=== PATIENT | male | born 1960 | race Caucasian/White ===

== ENCOUNTER 2022-05-15 11:56 | Outpatient (REF) | payer MEDICARE, SELFPAY ==
[2022-05-15 13:57] LABS: Appearance Urine Clear; Color Urine Yellow; Glucose Urine UA Negative (Negative); Leukocyte Esterase Urine Negative (Negative); Nitrite Urine Negative (Negative); Urine Blood Negative (Negative); Urine Ketones Negative (Negative); Urine Protein Negative (Neg-Trace)
[2022-05-15 13:59] LABS: Bacteria Urine None Seen (None Seen); Hyaline Casts Urine 0-2 /LPF (0-2); RBC Urine 0-2 /HPF (0-2); Squamous Epithelial Cell Urine 0-2 /HPF (0-2); WBC Urine 0-5 /HPF (0-5)
== END 2022-05-15 11:57 | disposition home or self-care (01) ==
LOC: HO.10HDL 11:56
PROVIDERS: Visit Provider Internal Medicine Hypertension Specialist
DX: N17.9 Acute kidney failure, unspecified (principal); E11.22 Type 2 diabetes mellitus with diabetic chronic kidney disease; N18.9 Chronic kidney disease, unspecified
CPT/HCPCS: 81001

== ENCOUNTER 2022-06-15 12:43 | Outpatient (REF) | payer MEDICARE, SELFPAY ==
--- NOTE | ~2022-06-15 | US_ITS ---
EXAMINATION: US RETROPERITONEAL LIMITED (RENAL ONLY) CLINICAL INFORMATION: Type 2 diabetes. Acute kidney injury. CKD. Hyperkalemia. COMPARISON: None TECHNIQUE: Real-time imaging of the kidneys. FINDINGS: RIGHT KIDNEY: 12.3 x 6.8 x 6.4 cm (SAG x AP x TRV). The kidney is normal in size, contour, and echogenicity. Renal cortical thickness is normal. No calculi or focal parenchymal lesions. No hydronephrosis. LEFT KIDNEY: 12.4 x 5.9 x 5.9 cm (SAG x AP x TRV). The kidney is normal in size, contour, and echogenicity. Renal cortical thickness is normal. No calculi or focal parenchymal lesions. No hydronephrosis. US/US renal BI IMPRESSION: Normal renal ultrasound.
== END 2022-06-15 12:44 | disposition home or self-care (01) ==
LOC: HO.US 12:43
PROVIDERS: Visit Provider Internal Medicine Hypertension Specialist
DX: N17.9 Acute kidney failure, unspecified (principal); E11.22 Type 2 diabetes mellitus with diabetic chronic kidney disease; N18.9 Chronic kidney disease, unspecified; E87.5 Hyperkalemia
CPT/HCPCS: 76775

== ENCOUNTER 2022-06-18 15:09 | Outpatient (REF) | payer MEDICARE, SELFPAY ==
[2022-06-18 15:32] LABS: MANUAL DIFF FLAG NO
[2022-06-18 16:20] LABS: Basophils Absolute Auto 0.1 X10*3/uL (0.0-0.2); Basophils Percent Auto 0.6 % (0-2); Eosinophils Absolute Auto 0.2 X10*3/uL (0.0-0.4); Eosinophils Percent Auto 2.2 % (0-4); Hematocrit 38.7 % (42.0-52.0); Hemoglobin 13.3 g/dl (14.0-18.0); Imm Gran Abs Auto 0.12 X10*3/uL (0.00-0.03); Imm Gran Pct Auto 1.3 % (0.0-0.4); Lymphocytes Percent Auto 31.3 % (20-40); Mean Corpuscular HGB Conc 34.4 g/dl (31.0-36.0); Mean Corpuscular Hemoglobin 31.3 pg (27.0-33.0); Mean Corpuscular Volume 91.1 fL (80.0-98.0); Mean Platelet Volume 10.1 fL (9.4-12.4); Monocytes Absolute Auto 0.9 X10*3/uL (0.1-1.2); Monocytes Percent Auto 9.2 % (2-11); Neutrophils Absolute Auto 5.3 x10*3/uL (2.0-8.3); Neutrophils Percent Auto 55.4 % (45-73); Platelet Count 309 X10*3/uL (160-400); Red Blood Count 4.25 X10*6/uL (4.60-5.80); Red Cell Distribution Width 11.6 % (11.0-16.0); White Blood Count 9.5 X10*3/uL (4.8-10.8)
[2022-06-18 16:49] LABS: Anion Gap 22 (12-20); Blood Urea Nitrogen 23 mg/dL (9-16); Calcium 10.5 mg/dL (8.4-10.2); Carbon Dioxide 21 mmol/L (22-29); Chloride 100 mmol/L (96-108); Estimated Glomerular Filt Rate 51; Glucose Random 345 mg/dL (60-115); Sodium 138 mmol/L (135-145)
== END 2022-06-18 15:10 | disposition home or self-care (01) ==
LOC: HO.LAB 15:09
PROVIDERS: PCP Internal Medicine; Visit Provider Internal Medicine Hypertension Specialist
DX: E87.5 Hyperkalemia (principal)
CPT/HCPCS: 36415; 80048; 85025

== ENCOUNTER 2023-07-30 11:59 | Outpatient (AMB) | payer MEDICARE, MEDICAID, SELFPAY ==
--- NOTE | 2023-07-30 12:07 | HO.NEPHOV ---
HPI HPI Comments History of Present Illness Details Middle-aged man with a history of longstanding hypertension and diabetes mellitus complicated by a CVA with chronic kidney disease he is here for follow-up. He has a history of recurrent hyperkalemia as well. In June he went to [facility] and he noticed leg edema. Edema was bilateral lasted for a week subsided spontaneously no association with shortness of breath or any change in urination. He has been on amlodipine for control of blood pressure. He denies high salt intake History was obtained through human resources operations manager In April he had Doppler of lower extremities and there was no DVT Of note use a history of alcohol intake. He drinks about 250 mL of vodka every day. Vital Signs 07/30/23 12:13 Height 5 ft 7 in Weight 233 lb 2 oz BMI 36.5 BP 132/80 Blood Pressure Location Lt brachial Position Sitting Pulse 72 Pulse Source Pulse Oximeter Pulse Oximetry (%) 98 Oxygen Delivery Method Room Air Physical Exam Vital Signs: Last Vital Signs Pulse 72 07/30/23 12:13 BP 132/80 07/30/23 12:13 Pulse Ox 98 07/30/23 12:13 Oxygen Delivery Method Room Air 07/30/23 12:13 BMI result Body Mass Index 36.5 Const General: comfortable Nutritional Appearance: well nourished Orientation/consciousness: patient oriented x3 HEENT Head: No normal to inspection Mouth: moist mucous membranes Neck Neck: Yes supple and Yes no JVD Resp Auscultation: clear to auscultation bilaterally, no rales and rub present Cardio Jugular venous distension: no JVD Palpation: no palpable S3 and no palpable S4 Heart sounds: no rubs GI Palpation (GI): Soft to palpation and nontender Percussion: No Fluid wave present General: Yes no CVA tenderness Back/Spine/Pelvis Back: no CVA tenderness Skin General skin exam: no rashes or lesions noted Neuro General: patient oriented x3 Extrem General: No clubbing Right upper extremity: edema (Trace edema : left lower extremity more around the ankle. No edema on Rt.LE) Results Reviewed Results Reviewed: Labs as of March 2023 BUN 15 creatinine 1.3. Potassium was 5.5 Repeat potassium in April was 4.9 Assessment & Plan Assessment & Plan (1) CKD (chronic kidney disease) stage 3, GFR 30-59 ml/min: Code(s): N18.30 - Chronic kidney disease, stage 3 unspecified Plan: Mild CKD in a setting of hypertension and diabetes mellitus. Creatinine bumped up to 1.3 baseline 1.1. This may be due to hypoperfusion. She will repeat renal function in the next few weeks Continue to avoid nephrotoxic agents including NSAIDs. (2) Edema: Code(s): R60.9 - Edema, unspecified Plan: This may be due to excessive salt intake while on vacation. However is on amlodipine which could also contribute to localized dependent edema. I will add Lasix 20 mg once a day Indication distended low-sodium diet. (3) HTN (hypertension): Code(s): I10 - Essential (primary) hypertension Plan: Blood pressure is acceptable. Again we discussed low-salt diet and weight loss (4) Hyperkalemia: Code(s): E87.5 - Hyperkalemia Plan: History of recurrent hyperkalemia. Recent potassium was normal in March potassium was elevated 5.5. Madeleine low-potassium diet as well Orders: Orders Total Protein Urine Random Today N18.30 - Chronic kidney disease, stage 3 unspecified Creatinine Urine Today N18.30 - Chronic kidney disease, stage 3 unspecified Electrolytes Today N18.30 - Chronic kidney disease, stage 3 unspecified Creatinine Today N18.30 - Chronic kidney disease, stage 3 unspecified Calcium Today N18.30 - Chronic kidney disease, stage 3 unspecified Electrolytes 3 Weeks N18.30 - Chronic kidney disease, stage 3 unspecified Blood Urea Nitrogen 3 Weeks N18.30 - Chronic kidney disease, stage 3 unspecified Creatinine 3 Weeks N18.30 - Chronic kidney disease, stage 3 unspecified UA and rflx microscopic Today N18.30 - Chronic kidney disease, stage 3 unspecified Blood Urea Nitrogen Today N18.30 - Chronic kidney disease, stage 3 unspecified UA and rflx microscopic 3 Weeks N18.30 - Chronic kidney disease, stage 3 unspecified Total Protein Urine Random 3 Weeks N18.30 - Chronic kidney disease, stage 3 unspecified Creatinine Urine 3 Weeks N18.30 - Chronic kidney disease, stage 3 unspecified Medications: New furosemide (Lasix) 20 mg PO DAILY 30 tabs 2RF Coding Level of Care Code Est Pt Level 4 (70675) Diagnoses CKD (chronic kidney disease) stage 3, GFR 30-59 ml/min N18.30 Edema R60.9 HTN (hypertension) I10 Hyperkalemia E87.5
[2023-07-30 12:13] VITALS: BP 132/80; PULSE 72; O2SAT 98; BMI 36.5
== END 2023-07-30 12:40 | disposition home or self-care (01) ==
PROVIDERS: PCP Internal Medicine; Visit Provider Internal Medicine Hypertension Specialist
DX: E11.22 Type 2 diabetes mellitus with diabetic chronic kidney disease (principal); I12.9 Hypertensive chronic kidney disease with stage 1 through stage 4 chronic kidney disease, or unspecified chronic kidney disease; N18.30 Chronic kidney disease, stage 3 unspecified; E87.5 Hyperkalemia; R60.9 Edema, unspecified
CPT/HCPCS: 99214

== ENCOUNTER → 2023-07-30 11:59 | Outpatient (BNVA) | payer MEDICARE, MEDICAID, SELFPAY | PROVIDERS: PCP Internal Medicine; Visit Provider Internal Medicine Hypertension Specialist | DX: I12.9 Hypertensive chronic kidney disease with stage 1 through stage 4 chronic kidney disease, or unspecified chronic kidney disease (principal); N18.30 Chronic kidney disease, stage 3 unspecified; E78.5 Hyperlipidemia, unspecified; R60.9 Edema, unspecified | CPT/HCPCS: 99212 ==

== ENCOUNTER 2023-08-27 11:39 | Outpatient (AMB) | payer MEDICARE, MEDICAID, SELFPAY ==
[2023-08-27 11:51] VITALS: BP 124/80; PULSE 74; O2SAT 96; BMI 37.0
--- NOTE | 2023-08-27 11:51 | HO.NEPHOV_ITS ---
HPI HPI Comments History of Present Illness Details Middle-aged man with a history of longstanding hypertension and diabetes mellitus complicated by a CVA with chronic kidney disease he is here for follow-up. He has a history of recurrent hyperkalemia as well. In June he went to [facility] and he noticed leg edema. Edema was bilateral lasted for a week subsided spontaneously no association with shortness of breath or any change in urination. He has been on amlodipine for control of blood pressure. He denies high salt intake History was obtained through maintenance mechanic millwright In April he had Doppler of lower extremities and there was no DVT Of note use a history of alcohol intake. He drinks about 250 mL of vodka every day. 08/27/2023 After addition of the Lasix 20 mg a day leg edema is significantly improved. No shortness of breath. He had some blood work and results not available. Bonded Strand Operator service was used. [facility] Social History (Updated 08/27/23 @ 11:55 by Amarilys Alvarez MA) Alcohol intake: never Patient Tobacco Use Status: Never used Tobacco Vital Signs 08/27/23 11:51 Height 5 ft 7 in Weight 236 lb 6 oz BMI 37.0 BP 124/80 Blood Pressure Location Lt brachial Position Sitting Pulse 74 Pulse Source Pulse Oximeter Pulse Oximetry (%) 96 Oxygen Delivery Method Room Air Physical Exam Vital Signs: Last Vital Signs Pulse 74 08/27/23 11:51 BP 124/80 08/27/23 11:51 Pulse Ox 96 08/27/23 11:51 Oxygen Delivery Method Room Air 08/27/23 11:51 BMI result Body Mass Index 37.0 Const General: comfortable Nutritional Appearance: well nourished Orientation/consciousness: patient oriented x3 HEENT Head: No normal to inspection Mouth: moist mucous membranes Neck Neck: Yes supple and Yes no JVD Resp Auscultation: clear to auscultation bilaterally, no rales and rub present Cardio Jugular venous distension: no JVD Palpation: no palpable S3 and no palpable S4 Heart sounds: no rubs GI Palpation (GI): Soft to palpation and nontender Percussion: No Fluid wave present General: Yes no CVA tenderness Back/Spine/Pelvis Back: no CVA tenderness Skin General skin exam: no rashes or lesions noted Neuro General: patient oriented x3 Extrem General: No clubbing Right upper extremity: edema (Trace edema ) Assessment & Plan Assessment & Plan (1) HTN (hypertension): Code(s): I10 - Essential (primary) hypertension Plan: Blood pressure is acceptable. Again we discussed low-salt diet and weight loss (2) Hyperkalemia: Code(s): E87.5 - Hyperkalemia Plan: History of recurrent hyperkalemia. Recent potassium was normal in March potassium was elevated 5.5. low-potassium diet as well (3) CKD (chronic kidney disease) stage 3, GFR 30-59 ml/min: Code(s): N18.30 - Chronic kidney disease, stage 3 unspecified Plan: Mild CKD in a setting of hypertension and diabetes mellitus. Creatinine bumped up to 1.3 baseline 1.1. This may be due to hypoperfusion. Follow renal function Continue to avoid nephrotoxic agents including NSAIDs. (4) Edema: Code(s): R60.9 - Edema, unspecified Plan: This may be due to excessive salt intake . However is on amlodipine which could also contribute to localized dependent edema. I will continue Lasix 20 mg once a day Stay on low-sodium diet. Orders: Orders Blood Urea Nitrogen 1 Month N18.30 - Chronic kidney disease, stage 3 unspecified Creatinine 1 Month N18.30 - Chronic kidney disease, stage 3 unspecified Calcium 1 Month N18.30 - Chronic kidney disease, stage 3 unspecified Electrolytes 1 Month N18.30 - Chronic kidney disease, stage 3 unspecified Medications: Refilled furosemide (Lasix) 20 mg PO DAILY 30 tabs 2RF Coding Level of Care Code Est Pt Level 3 (57605) Diagnoses HTN (hypertension) I10 Hyperkalemia E87.5 CKD (chronic kidney disease) stage 3, GFR 30-59 ml/min N18.30 Edema R60.9 Results Reviewed Nephrology Results: Hgb 13.3 g/dl (14.0-18.0) L 06/18/22 WBC 9.5 X10*3/uL (4.8-10.8) 06/18/22 Plt Count 309 X10*3/uL (160-400) 06/18/22 Sodium 138 mmol/L (135-145) 06/18/22 Potassium 5.0 mmol/L (3.3-5.1) 06/18/22 Chloride 100 mmol/L (96-108) 06/18/22 Carbon Dioxide 21 mmol/L (22-29) L 06/18/22 BUN 23 mg/dL (9-16) H 06/18/22 Creatinine 1.41 mg/dL (0.5-1.4) H 06/18/22 Calcium 10.5 mg/dL (8.4-10.2) H 06/18/22 Urine Protein Negative mg/dL (Neg-Trace) 05/15/22 Renal US 06/15/22
== END 2023-08-27 12:16 | disposition home or self-care (01) ==
PROVIDERS: PCP Internal Medicine; Visit Provider Internal Medicine Hypertension Specialist
DX: I10 Essential (primary) hypertension (principal); E87.5 Hyperkalemia; N18.30 Chronic kidney disease, stage 3 unspecified; R60.9 Edema, unspecified
CPT/HCPCS: 99213

== ENCOUNTER → 2023-08-27 11:39 | Outpatient (BNVA) | payer MEDICARE, MEDICAID, SELFPAY | PROVIDERS: PCP Internal Medicine; Visit Provider Internal Medicine Hypertension Specialist | DX: I12.9 Hypertensive chronic kidney disease with stage 1 through stage 4 chronic kidney disease, or unspecified chronic kidney disease (principal); N18.30 Chronic kidney disease, stage 3 unspecified; E78.5 Hyperlipidemia, unspecified; R60.9 Edema, unspecified | CPT/HCPCS: 99212 ==

== ENCOUNTER 2023-11-14 10:46 | Outpatient (AMB) | payer MEDICARE, MEDICAID, SELFPAY ==
[2023-11-14 10:49] VITALS: BP 140/88; PULSE 80; O2SAT 97; BMI 36.6
--- NOTE | 2023-11-14 10:49 | HO.NEPHOV ---
HPI HPI Comments History of Present Illness Details Middle-aged man with a history of longstanding hypertension and diabetes mellitus complicated by a CVA with chronic kidney disease he is here for follow-up. He has a history of recurrent hyperkalemia as well. In June he went to [facility] and he noticed leg edema. Edema was bilateral lasted for a week subsided spontaneously no association with shortness of breath or any change in urination. He has been on amlodipine for control of blood pressure. He denies high salt intake History was obtained through power electronics research engineer In April he had Doppler of lower extremities and there was no DVT Of note use a history of alcohol intake. He drinks about 250 mL of vodka every day. 08/27/2023 After addition of the Lasix 20 mg a day leg edema is significantly improved. No shortness of breath. He had some blood work and results not available. Bindery Helper service was used. 11/14/23 c/o numbness in legs Edema- mild - on and off Blood sugar 200s PFSH Social History Alcohol intake: never Patient Tobacco Use Status: Never used Tobacco Vital Signs 11/14/23 10:49 Height 5 ft 7 in Weight 234 lb BMI 36.6 BP 140/88 H Blood Pressure Location Rt brachial Position Sitting Pulse 80 Pulse Source Pulse Oximeter Pulse Oximetry (%) 97 Oxygen Delivery Method Room Air Physical Exam Vital Signs: Last Vital Signs Pulse 80 11/14/23 10:49 BP 140/88 H 11/14/23 10:49 Pulse Ox 97 11/14/23 10:49 Oxygen Delivery Method Room Air 11/14/23 10:49 BMI result Body Mass Index 36.6 Const General: comfortable Nutritional Appearance: well nourished Orientation/consciousness: patient oriented x3 HEENT Head: No normal to inspection Mouth: moist mucous membranes Neck Neck: Yes supple and Yes no JVD Resp Auscultation: clear to auscultation bilaterally, no rales and rub present Cardio Jugular venous distension: no JVD Palpation: no palpable S3 and no palpable S4 Heart sounds: no rubs GI Palpation (GI): Soft to palpation and nontender Percussion: No Fluid wave present General: Yes no CVA tenderness Back/Spine/Pelvis Back: no CVA tenderness Skin General skin exam: no rashes or lesions noted Neuro General: patient oriented x3 Extrem General: No clubbing Right upper extremity: edema (Trace edema ) Assessment & Plan Assessment & Plan (1) HTN (hypertension): Code(s): I10 - Essential (primary) hypertension Plan: Blood pressure is acceptable. we discussed low-salt diet and weight loss (2) Hyperkalemia: Code(s): E87.5 - Hyperkalemia Plan: History of recurrent hyperkalemia. Recent potassium was normal in March potassium was elevated 5.5. low-potassium diet as well Recent K was normal (3) CKD (chronic kidney disease) stage 3, GFR 30-59 ml/min: Code(s): N18.30 - Chronic kidney disease, stage 3 unspecified Plan: Mild CKD in a setting of hypertension and diabetes mellitus. Creatinine bumped up to 1.3 baseline 1.1. This may be due to hypoperfusion. Follow renal function Repeat labs ordered today Continue to avoid nephrotoxic agents including NSAIDs. He will benefit from SGLT-2 inhibitor (4) Edema: Code(s): R60.9 - Edema, unspecified Plan: This may be due to excessive salt intake . However is on amlodipine which could also contribute to localized dependent edema. I will continue Lasix 20 mg once a day Stay on low-sodium diet. Plan Discussed tight control of blood sugar and follow up with PCP Orders: Orders Comprehensive Met. Panel Today N18.9 - Chronic kidney disease, unspecified Coding Level of Care Code Est Pt Level 4 (89692) Diagnoses HTN (hypertension) I10 Hyperkalemia E87.5 CKD (chronic kidney disease) stage 3, GFR 30-59 ml/min N18.30 Edema R60.9 Results Reviewed Nephrology Results: Hgb 13.3 g/dl (14.0-18.0) L 06/18/22 WBC 9.5 X10*3/uL (4.8-10.8) 06/18/22 Plt Count 309 X10*3/uL (160-400) 06/18/22 Sodium 138 mmol/L (135-145) 06/18/22 Potassium 5.0 mmol/L (3.3-5.1) 06/18/22 Chloride 100 mmol/L (96-108) 06/18/22 Carbon Dioxide 21 mmol/L (22-29) L 06/18/22 BUN 23 mg/dL (9-16) H 06/18/22 Creatinine 1.41 mg/dL (0.5-1.4) H 06/18/22 Calcium 10.5 mg/dL (8.4-10.2) H 06/18/22 Urine Protein Negative mg/dL (Neg-Trace) 05/15/22 Renal US 06/15/22
== END 2023-11-14 11:16 | disposition home or self-care (01) ==
PROVIDERS: PCP Internal Medicine; Visit Provider Internal Medicine Hypertension Specialist
DX: I10 Essential (primary) hypertension (principal); E87.5 Hyperkalemia; N18.30 Chronic kidney disease, stage 3 unspecified; R60.9 Edema, unspecified
CPT/HCPCS: 99214

== ENCOUNTER → 2023-11-14 10:46 | Outpatient (BNVA) | payer MEDICARE, MEDICAID, SELFPAY | PROVIDERS: PCP Internal Medicine; Visit Provider Internal Medicine Hypertension Specialist | DX: I12.9 Hypertensive chronic kidney disease with stage 1 through stage 4 chronic kidney disease, or unspecified chronic kidney disease (principal); N18.30 Chronic kidney disease, stage 3 unspecified; E78.5 Hyperlipidemia, unspecified; R60.9 Edema, unspecified | CPT/HCPCS: 36415; 80053; 99212 ==

== ENCOUNTER 2023-11-14 11:21 | Outpatient (REF) | payer MEDICARE, MEDICAID, SELFPAY ==
[2023-11-14 13:39] LABS: Alanine Aminotransferase 30 U/L (0-40); Albumin Level 4.4 g/dL (3.5-5.0); Alkaline Phosphatase 61 U/L (39-117); Anion Gap 13 (12-20); Aspartate Amino Transferase 23 U/L (5-37); Bilirubin Total 0.5 mg/dL (0.0-1.0); Blood Urea Nitrogen 21 mg/dL (9-16); Calcium 9.5 mg/dL (8.4-10.2); Carbon Dioxide 29 mmol/L (22-29); Chloride 102 mmol/L (96-108); Estimated Glomerular Filt Rate 55; Glucose Random 223 mg/dL (60-115); Potassium 4.4 mmol/L (3.3-5.1); Sodium 140 mmol/L (135-145); Total Protein 7.5 g/dL (6.5-8.0)
== END 2023-11-14 11:22 | disposition home or self-care (01) ==
LOC: HO.10HDL 11:21
PROVIDERS: Visit Provider Internal Medicine Hypertension Specialist
DX: Z13.89 Encounter for screening for other disorder (principal)
CPT/HCPCS: 36415; 80053

== ENCOUNTER 2024-03-16 11:06 | Outpatient (AMB) | payer MEDICARE, MEDICAID, SELFPAY ==
[2024-03-16 11:07] VITALS: BP 124/82; PULSE 73; O2SAT 97; BMI 37.3
--- NOTE | 2024-03-16 11:07 | HO.NEPHOV ---
Vital Signs 03/16/24 11:07 Height 5 ft 7 in Weight 238 lb BMI 37.3 BP 124/82 Blood Pressure Location Lt brachial Position Sitting Pulse 73 Pulse Source Pulse Oximeter Pulse Oximetry (%) 97 Oxygen Delivery Method Room Air Intake Visit Reasons: / March FU/ Conf w/daughter Sales And Events Coordinator Required: Yes Sales And Events Coordinator Name: Angelica Su Accompanied by: Spouse Allergies No Known Allergies [No Known Allergies*] Allergy (Verified 03/16/24 11:10) Medication List - Last Reconciled 03/16/24 by Bernardo Hoyos MD amlodipine 5 mg PO DAILY atorvastatin 80 mg PO DAILY clopidogrel 75 mg PO DAILY furosemide (Lasix) 20 mg PO DAILY gabapentin 300 mg PO TID glimepiride 4 mg PO DAILY insulin glargine (Basaglar KwikPen U-100 Insulin) units subcut mecobalamin (vitamin B12) 1,000 mcg PO DAILY metformin 1,000 mg PO BID metoprolol succinate ER 100 mg PO DAILY metoprolol succinate ER 50 mg PO DAILY thiamine HCl (vitamin B1) 50 mg PO DAILY HPI Comments Details: Middle-aged man with a history of longstanding hypertension and diabetes mellitus complicated by a CVA with chronic kidney disease he is here for follow-up. He has a history of recurrent hyperkalemia as well. In June he went to [facility] and he noticed leg edema. Edema was bilateral lasted for a week subsided spontaneously no association with shortness of breath or any change in urination. He has been on amlodipine for control of blood pressure. He denies high salt intake History was obtained through student success coach In April he had Doppler of lower extremities and there was no DVT Of note use a history of alcohol intake. He drinks about 250 mL of vodka every day. 08/27/2023 After addition of the Lasix 20 mg a day leg edema is significantly improved. No shortness of breath. He had some blood work and results not available. Sales And Events Coordinator service was used. 11/14/23 c/o numbness in legs Edema- mild - on and off Blood sugar 200s 03/16/24 c/o leg swelling. No dyspnea PFSH Social History Alcohol intake: never Patient Tobacco Use Status: Never used Tobacco Physical Exam Vital Signs: Last Vital Signs Pulse 73 03/16/24 11:07 BP 124/82 03/16/24 11:07 Pulse Ox 97 03/16/24 11:07 Oxygen Delivery Method Room Air 03/16/24 11:07 BMI result Body Mass Index 37.3 Const General: comfortable; No acute distress Orientation/consciousness: patient oriented x3 Eyes General: appearance normal, both eyes and all related structures Visual Cuevas: normal visual cuevas by confrontation Neck Neck: Yes supple and Yes no JVD Resp Effort & Inspection: normal respiratory effort and respiratory effort not decreased Auscultation: rhonchi Cardio Palpation: no palpable S3 and no palpable S4 Heart sounds: no rubs GI Inspection: Yes normal to inspection Palpation (GI): Soft to palpation Percussion: Yes normal to percussion Auscultation: normal bowel sounds General: Yes no CVA tenderness Back/Spine/Pelvis Back: no CVA tenderness Skin General skin exam: no petechiae and no purpura Neuro General: patient oriented x3 and no focal motor deficits Extrem General: No clubbing and Yes edema (trace) Results Reviewed Nephrology Results: Hgb 13.3 g/dl (14.0-18.0) L 06/18/22 WBC 9.5 X10*3/uL (4.8-10.8) 06/18/22 Plt Count 309 X10*3/uL (160-400) 06/18/22 Sodium 140 mmol/L (135-145) 11/14/23 Potassium 4.4 mmol/L (3.3-5.1) 11/14/23 Chloride 102 mmol/L (96-108) 11/14/23 Carbon Dioxide 29 mmol/L (22-29) 11/14/23 BUN 21 mg/dL (9-16) H 11/14/23 Creatinine 1.31 mg/dL (0.5-1.4) 11/14/23 Calcium 9.5 mg/dL (8.4-10.2) 11/14/23 Urine Protein Negative mg/dL (Neg-Trace) 05/15/22 Renal US 06/15/22 Assessment & Plan Assessment & Plan (1) CKD (chronic kidney disease) stage 3, GFR 30-59 ml/min: Code(s): N18.30 - Chronic kidney disease, stage 3 unspecified Category: Medical Plan: Mild CKD in a setting of hypertension and diabetes mellitus. Creatinine bumped up to 1.3 baseline 1.1. This may be due to hypoperfusion. Follow renal function Repeat labs ordered today Continue to avoid nephrotoxic agents including NSAIDs. He will benefit from SGLT-2 inhibitor (2) HTN (hypertension): Code(s): I10 - Essential (primary) hypertension Category: Medical Plan: Blood pressure is well controlled we discussed low-salt diet and weight loss (3) Hyperkalemia: Code(s): E87.5 - Hyperkalemia Category: Medical Plan: History of recurrent hyperkalemia. Recent potassium was normal in March potassium was elevated 5.5. low-potassium diet as well Recent K was normal (4) Edema: Code(s): R60.9 - Edema, unspecified Category: Medical Plan: This may be due to excessive salt intake . However is on amlodipine which could also contribute to localized dependent edema. Will decrease AMLODIPINE to 2.5 mg daily I will continue Lasix 20 mg once a day Leg elevation at night Stay on low-sodium diet. Plan Discussed tight control of blood sugar and follow up with PCP Orders: Orders Basic Metabolic Panel Today I10 - Essential (primary) hypertension, N18.30 - Chronic kidney disease, stage 3 unspecified Complete Blood Count Auto Diff Today I10 - Essential (primary) hypertension, N18.30 - Chronic kidney disease, stage 3 unspecified Coding Level of Care Code Est Pt Level 4 (68514) Diagnoses CKD (chronic kidney disease) stage 3, GFR 30-59 ml/min N18.30 HTN (hypertension) I10 Hyperkalemia E87.5 Edema R60.9
== END 2024-03-16 11:25 | disposition home or self-care (01) ==
PROVIDERS: PCP Internal Medicine; Visit Provider Internal Medicine Hypertension Specialist
DX: N18.30 Chronic kidney disease, stage 3 unspecified (principal); I10 Essential (primary) hypertension; E87.5 Hyperkalemia; R60.9 Edema, unspecified
CPT/HCPCS: 99214

== ENCOUNTER → 2024-03-16 11:06 | Outpatient (BNVA) | payer MEDICARE, MEDICAID, SELFPAY | PROVIDERS: PCP Internal Medicine; Visit Provider Internal Medicine Hypertension Specialist | DX: E11.22 Type 2 diabetes mellitus with diabetic chronic kidney disease (principal); I12.9 Hypertensive chronic kidney disease with stage 1 through stage 4 chronic kidney disease, or unspecified chronic kidney disease; N18.30 Chronic kidney disease, stage 3 unspecified; E87.5 Hyperkalemia; R60.9 Edema, unspecified; Z86.73 Personal history of transient ischemic attack (TIA), and cerebral infarction without residual deficits | CPT/HCPCS: 99212 ==

== ENCOUNTER 2024-03-17 09:14 | Outpatient (REF) | payer MEDICARE, MEDICAID, SELFPAY ==
[2024-03-17 09:55] LABS: MANUAL DIFF FLAG NO
[2024-03-17 10:13] LABS: Basophils Absolute Auto 0.1 X10*3/uL (0.0-0.2); Basophils Percent Auto 0.7 % (0-2); Eosinophils Absolute Auto 0.2 X10*3/uL (0.0-0.4); Eosinophils Percent Auto 2.7 % (0-4); Hematocrit 38.9 % (42.0-52.0); Hemoglobin 13.3 g/dl (14.0-18.0); Imm Gran Abs Auto 0.04 X10*3/uL (0.00-0.03); Imm Gran Pct Auto 0.6 % (0.0-0.4); Lymphocytes Absolute Auto 2.1 X10*3/uL (1.2-4.9); Lymphocytes Percent Auto 31.4 % (20-40); Mean Corpuscular HGB Conc 34.2 g/dl (31.0-36.0); Mean Corpuscular Hemoglobin 32.3 pg (27.0-33.0); Mean Corpuscular Volume 94.4 fL (80.0-98.0); Mean Platelet Volume 9.5 fL (9.4-12.4); Monocytes Absolute Auto 0.8 X10*3/uL (0.1-1.2); Monocytes Percent Auto 11.1 % (2-11); Neutrophils Absolute Auto 3.6 x10*3/uL (2.0-8.3); Neutrophils Percent Auto 53.5 % (45-73); Platelet Count 261 X10*3/uL (160-400); Red Blood Count 4.12 X10*6/uL (4.60-5.80); Red Cell Distribution Width 11.7 % (11.0-16.0); White Blood Count 6.8 X10*3/uL (4.8-10.8)
[2024-03-17 11:25] LABS: Anion Gap 14 (12-20); Blood Urea Nitrogen 22 mg/dL (9-16); Calcium 10.2 mg/dL (8.4-10.2); Carbon Dioxide 26 mmol/L (22-29); Chloride 105 mmol/L (96-108); Estimated Glomerular Filt Rate 55; Glucose Random 161 mg/dL (60-115); Potassium 5.3 mmol/L (3.3-5.1); Sodium 140 mmol/L (135-145)
== END 2024-03-17 09:15 | disposition home or self-care (01) ==
LOC: HO.LAB 09:14
PROVIDERS: PCP Internal Medicine; Visit Provider Internal Medicine Hypertension Specialist
DX: I10 Essential (primary) hypertension (principal); N18.30 Chronic kidney disease, stage 3 unspecified
CPT/HCPCS: 36415; 80048; 85025

== ENCOUNTER 2024-08-04 10:15 | Outpatient (AMB) | payer MEDICARE, MEDICAID, SELFPAY ==
[2024-08-04 10:20] VITALS: BP 104/76; PULSE 77; O2SAT 96; BMI 37.3
--- NOTE | 2024-08-04 10:20 | HO.NEPHOV_ITS ---
Vital Signs 08/04/24 10:20 Height 5 ft 7 in Weight 238 lb BMI 37.3 BP 104/76 Blood Pressure Location Lt brachial Position Sitting Pulse 77 Pulse Source Pulse Oximeter Pulse Oximetry (%) 96 Oxygen Delivery Method Room Air Intake Visit Reasons: CKD/ Conf Tool And Production Planner Required: Yes Tool And Production Planner Name: Ramon [id number] Accompanied by: Spouse Allergies No Known Allergies [No Known Allergies*] Allergy (Verified 08/04/24 10:23) Medication List - Last Reconciled 08/04/24 by Bernardo Hoyos MD amlodipine 5 mg PO DAILY atorvastatin 80 mg PO DAILY clopidogrel 75 mg PO DAILY dulaglutide (Trulicity) 0.75 mg subcut QWEEK furosemide 20 mg PO DAILY gabapentin 300 mg PO TID glimepiride 4 mg PO DAILY insulin glargine (Basaglar KwikPen U-100 Insulin) units subcut mecobalamin (vitamin B12) 1,000 mcg PO DAILY metformin 1,000 mg PO BID metoprolol succinate ER 100 mg PO DAILY metoprolol succinate ER 50 mg PO DAILY thiamine HCl (vitamin B1) 50 mg PO DAILY HPI Comments Details: Middle-aged man with a history of longstanding hypertension and diabetes mellitus complicated by a CVA with chronic kidney disease he is here for follow- up. He has a history of recurrent hyperkalemia as well. In June he went to [facility] and he noticed leg edema. Edema was bilateral lasted for a week subsided spontaneously no association with shortness of breath or any change in urination. He has been on amlodipine for control of blood pressure. He denies high salt intake History was obtained through hvac sheet metal installer In April he had Doppler of lower extremities and there was no DVT Of note use a history of alcohol intake. He drinks about 250 mL of vodka every day. 08/27/2023 After addition of the Lasix 20 mg a day leg edema is significantly improved. No shortness of breath. He had some blood work and results not available. Tool And Production Planner service was used. 11/14/23 c/o numbness in legs Edema- mild - on and off Blood sugar 200s 03/16/24 c/o leg swelling. No dyspnea PFSH Social History Alcohol intake: never Patient Tobacco Use Status: Never used Tobacco Physical Exam Vital Signs: Last Vital Signs Pulse 77 08/04/24 10:20 BP 104/76 08/04/24 10:20 Pulse Ox 96 08/04/24 10:20 Oxygen Delivery Method Room Air 08/04/24 10:20 BMI result Body Mass Index 37.3 Results Reviewed Nephrology Results: Hgb 13.3 g/dl (14.0-18.0) L 03/17/24 WBC 6.8 X10*3/uL (4.8-10.8) 03/17/24 Plt Count 261 X10*3/uL (160-400) 03/17/24 Sodium 140 mmol/L (135-145) 03/17/24 Potassium 5.3 mmol/L (3.3-5.1) H 03/17/24 Chloride 105 mmol/L (96-108) 03/17/24 Carbon Dioxide 26 mmol/L (22-29) 03/17/24 BUN 22 mg/dL (9-16) H 03/17/24 Creatinine 1.32 mg/dL (0.5-1.4) 03/17/24 Calcium 10.2 mg/dL (8.4-10.2) 03/17/24 Urine Protein Negative mg/dL (Neg-Trace) 05/15/22 Renal US 06/15/22 Assessment & Plan Assessment & Plan (1) CKD (chronic kidney disease) stage 3, GFR 30-59 ml/min: Code(s): N18.30 - Chronic kidney disease, stage 3 unspecified Category: Medical Plan: Mild CKD in a setting of hypertension and diabetes mellitus. Creatinine bumped up to 1.48 on Jul 23 This may be due to hypoperfusion. Follow renal function Repeat labs ordered today If cr stays elevated, would stop LASIX Increase fluid intake. Continue to avoid nephrotoxic agents including NSAIDs. He will benefit from SGLT-2 inhibitor (2) HTN (hypertension): Code(s): I10 - Essential (primary) hypertension Category: Medical Plan: Blood pressure is well controlled we discussed low-salt diet and weight loss (3) Hyperkalemia: Code(s): E87.5 - Hyperkalemia Category: Medical Plan: History of recurrent hyperkalemia. low-potassium diet as well Recent K was normal (4) Edema: Code(s): R60.9 - Edema, unspecified Category: Medical Plan: Has improved This may be due to excessive salt intake . However is on amlodipine which could also contribute to localized dependent edema. Keep AMLODIPINE 5 mg daily I will continue Lasix 20 mg once a day Leg elevation at night Stay on low-sodium diet. Plan Discussed tight control of blood sugar and follow up with PCP Orders: Orders Basic Metabolic Panel Today E87.5 - Hyperkalemia, N18.30 - Chronic kidney disease, stage 3 unspecified Coding Level of Care Code Est Pt Level 4 (00801) Diagnoses CKD (chronic kidney disease) stage 3, GFR 30-59 ml/min N18.30 HTN (hypertension) I10 Hyperkalemia E87.5 Edema R60.9
== END 2024-08-04 10:42 | disposition home or self-care (01) ==
PROVIDERS: PCP Internal Medicine; Visit Provider Internal Medicine Hypertension Specialist
DX: I12.9 Hypertensive chronic kidney disease with stage 1 through stage 4 chronic kidney disease, or unspecified chronic kidney disease (principal); N18.30 Chronic kidney disease, stage 3 unspecified; E87.5 Hyperkalemia; R60.9 Edema, unspecified
CPT/HCPCS: 99214

== ENCOUNTER 2024-08-04 10:53 | Outpatient (REF) | payer MEDICARE, MEDICAID, SELFPAY ==
[2024-08-04 14:11] LABS: Anion Gap 12 (12-20); Blood Urea Nitrogen 21 mg/dL (9-16); Calcium 9.5 mg/dL (8.4-10.2); Carbon Dioxide 30 mmol/L (22-29); Chloride 103 mmol/L (96-108); Estimated Glomerular Filt Rate 49; Glucose Random 172 mg/dL (60-115); Potassium 4.8 mmol/L (3.3-5.1); Sodium 140 mmol/L (135-145)
== END 2024-08-04 10:54 | disposition home or self-care (01) ==
LOC: HO.10HDL 10:53
PROVIDERS: Visit Provider Internal Medicine Hypertension Specialist
DX: E87.5 Hyperkalemia (principal); I12.9 Hypertensive chronic kidney disease with stage 1 through stage 4 chronic kidney disease, or unspecified chronic kidney disease; N18.30 Chronic kidney disease, stage 3 unspecified; R60.9 Edema, unspecified
CPT/HCPCS: 36415; 80048; 99212

== ENCOUNTER 2024-12-29 10:11 | Outpatient (AMB) | payer MEDICARE, MEDICAID, SELFPAY ==
[2024-12-29 10:11] VITALS: BP 126/78; PULSE 74; O2SAT 97; BMI 37.7
--- NOTE | 2024-12-29 10:11 | HO.NEPHOV ---
Vital Signs 12/29/24 10:11 Height 5 ft 7 in Weight 241 lb BMI 37.7 BP 126/78 Blood Pressure Location Rt brachial Position Sitting Pulse 74 Pulse Source Pulse Oximeter Pulse Oximetry (%) 97 Oxygen Delivery Method Room Air Intake Visit Reasons: CKD/ LVM Allergies No Known Allergies [No Known Allergies*] Allergy (Verified 12/29/24 10:11) Medication List - Last Reconciled 12/29/24 by Bernardo Hoyos MD amlodipine 5 mg PO DAILY atorvastatin 80 mg PO DAILY clopidogrel 75 mg PO DAILY dulaglutide (Trulicity) 0.75 mg subcut QWEEK furosemide 20 mg PO DAILY gabapentin 300 mg PO TID insulin glargine (Basaglar KwikPen U-100 Insulin) units subcut mecobalamin (vitamin B12) 1,000 mcg PO DAILY metformin 1,000 mg PO BID metoprolol succinate ER 100 mg PO DAILY metoprolol succinate ER 50 mg PO DAILY prasugrel HCl 10 mg PO DAILY thiamine HCl (vitamin B1) 50 mg PO DAILY HPI Comments Details: Middle-aged man with a history of longstanding hypertension and diabetes mellitus complicated by a CVA with chronic kidney disease he is here for follow-up. He has a history of recurrent hyperkalemia as well. In June he went to [facility] and he noticed leg edema. Edema was bilateral lasted for a week subsided spontaneously no association with shortness of breath or any change in urination. He has been on amlodipine for control of blood pressure. He denies high salt intake History was obtained through disabilities services officer In April he had Doppler of lower extremities and there was no DVT Of note use a history of alcohol intake. He drinks about 250 mL of vodka every day. 08/27/2023 After addition of the Lasix 20 mg a day leg edema is significantly improved. No shortness of breath. He had some blood work and results not available. [employer] service was used. 11/14/23; c/o numbness in legs; Edema- mild - on and off ;Blood sugar 200s 03/16/24; c/o leg swelling. No dyspnea 12/29/24 Overall doing OK PFSH Social History Alcohol intake: never Patient Tobacco Use Status: Never used Tobacco Physical Exam Vital Signs: Last Vital Signs Pulse 74 12/29/24 10:11 BP 126/78 12/29/24 10:11 Pulse Ox 97 12/29/24 10:11 Oxygen Delivery Method Room Air 12/29/24 10:11 BMI result Body Mass Index 37.7 Const General: comfortable; No acute distress Orientation/consciousness: patient oriented x3 Eyes General: appearance normal, both eyes and all related structures Visual Cuevas: normal visual cuevas by confrontation Neck Neck: Yes supple and Yes no JVD Resp Effort & Inspection: normal respiratory effort and respiratory effort not decreased Auscultation: rhonchi Cardio Palpation: no palpable S3 and no palpable S4 Heart sounds: no rubs GI Inspection: Yes normal to inspection Palpation (GI): Soft to palpation Percussion: Yes normal to percussion Auscultation: normal bowel sounds General: Yes no CVA tenderness Back/Spine/Pelvis Back: no CVA tenderness Skin General skin exam: no petechiae and no purpura Neuro General: patient oriented x3 and no focal motor deficits Extrem General: No clubbing and Yes edema (trace) Results Reviewed Nephrology Results: Hgb 13.3 g/dl (14.0-18.0) L 03/17/24 WBC 6.8 X10*3/uL (4.8-10.8) 03/17/24 Plt Count 261 X10*3/uL (160-400) 03/17/24 Sodium 140 mmol/L (135-145) 08/04/24 Potassium 4.8 mmol/L (3.3-5.1) 08/04/24 Chloride 103 mmol/L (96-108) 08/04/24 Carbon Dioxide 30 mmol/L (22-29) H 08/04/24 BUN 21 mg/dL (9-16) H 08/04/24 Creatinine 1.46 mg/dL (0.5-1.4) H 08/04/24 Calcium 9.5 mg/dL (8.4-10.2) 08/04/24 Assessment & Plan Assessment & Plan (1) CKD (chronic kidney disease) stage 3, GFR 30-59 ml/min: Code(s): N18.30 - Chronic kidney disease, stage 3 unspecified Category: Medical Plan: Mild CKD in a setting of hypertension and diabetes mellitus. Creatinine bumped up to 1.48 on Nov 7th This may be due to hypoperfusion. Follow renal function Repeat labs ordered today If cr stays elevated, would stop LASIX Increase fluid intake. Continue to avoid nephrotoxic agents including NSAIDs. He will benefit from SGLT-2 inhibitor (2) HTN (hypertension): Code(s): I10 - Essential (primary) hypertension Category: Medical Plan: Blood pressure is well controlled we discussed low-salt diet and weight loss (3) Hyperkalemia: Code(s): E87.5 - Hyperkalemia Category: Medical Plan: History of recurrent hyperkalemia. low-potassium diet as well Recent K was normal (4) Edema: Code(s): R60.9 - Edema, unspecified Category: Medical Plan: Has improved This may be due to excessive salt intake . However is on amlodipine which could also contribute to localized dependent edema. Keep AMLODIPINE 5 mg daily I will continue Lasix 20 mg once a day Leg elevation at night Stay on low-sodium diet. Plan Discussed tight control of blood sugar and follow up with PCP Orders: Orders Comprehensive Met. Panel Today N18.30 - Chronic kidney disease, stage 3 unspecified UA and rflx microscopic Today N18.30 - Chronic kidney disease, stage 3 unspecified Complete Blood Count no Diff Today N18.30 - Chronic kidney disease, stage 3 unspecified Total Protein Urine Random Today N18.30 - Chronic kidney disease, stage 3 unspecified Creatinine Urine Today N18.30 - Chronic kidney disease, stage 3 unspecified Coding Level of Care Code Est Pt Level 4 (73461) Diagnoses CKD (chronic kidney disease) stage 3, GFR 30-59 ml/min N18.30 HTN (hypertension) I10 Hyperkalemia E87.5 Edema R60.9
--- OUTSIDE RECORDS SUMMARY | 2024-12-29 12:03 | XMS_ITS | Clinical Summary ---
Author Organization [facility] Address [address] [place] [address] [address] [place] [phone] Phone Care Team Providers Care Raised Printer Name Role Phone Mia Howard MD Primary Care Provider [phone] Allergies No known active allergies Medications * This document contains information received from the source organization and may not represent a complete record from that organization. amLODIPine (NORVASC) 5 MG tablet Take 10 mg by mouth 1 (one) time each day Active atorvastatin (LIPITOR) 80 MG tablet Take 80 mg by mouth 1 (one) time each day Active clopidogrel (PLAVIX) 75 MG tablet Take 75 mg by mouth 1 (one) time each day Active Empagliflozin (Jardiance) 25 MG tablet Take 25 mg by mouth 1 (one) time each day in the morning Active metFORMIN (GLUCOPHAGE) 1000 MG tablet Take 1,000 mg by mouth in the morning and 1,000 mg in the evening. Take with meals. Active metoprolol succinate XL (TOPROL-XL) 100 MG 24 hr tablet Take 150 mg by mouth 1 (one) time each day Do not crush or chew. Active cyanocobalamin (VITAMIN B-12) 1000 MCG tablet Take 1,000 mcg by mouth 1 (one) time each day Active glimepiride (AMARYL) 4 MG tablet Take 1 tablet by mouth 01/10/2023 Active gabapentin (NEURONTIN) 300 MG capsule Take 1 capsule (300 mg total) by mouth in the morning and 1 capsule (300 mg total) at noon and 1 capsule (300 mg total) in the evening. 90 capsule 1 04/11/2023 Active Active Problems Problem Noted Date Diagnosed Date Hyperkalemia 05/11/2022 Social History Tobacco Use Types Packs/Day Years Used Date Smoking Tobacco: Never Smokeless Tobacco: Never Tobacco Cessation:Counseling Given: Not Answered Alcohol Use Standard Drinks/Week Comments Yes 0 (1 standard drink = 0.6 oz pur e alcohol) Sex and Gender Information Value Date Recorded Sex Assigned at Not on file Legal Sex Male 9:59 AM EDT Gender Identity Not on file Sexual Orientation Not on file Last Filed Vital Signs Vital Sign Reading Time Taken Comments Blood Pressure 140/88 04/11/2023 4:19 PM EDT Pulse 88 04/11/2023 4:19 PM EDT Temperature - - Respiratory Rate - - Oxygen Saturation 98% 04/11/2023 4:19 PM EDT Inhaled Oxygen Concentration - - Weight 102 kg (224 lb 12.8 oz) 04/11/2023 4:19 P M EDT Height 170.2 cm (5' 7 ) 04/11/2023 4:19 PM EDT Body Mass Index 35.21 04/11/2023 4:19 PM EDT Plan of Treatment Health Maintenance Due Date Last Done Comments Pneumococcal Vaccine: 50+ Years (1 of 2 - PCV) 02/03/1979 Colorectal Cancer Screening: Annual FOBT 02/03/2009 Colorectal Cancer Screening: Colonoscopy 02/03/2009 Colorectal Cancer Screening: Sigmoidoscopy 02/03/2009 Diabetes: Ophthalmology Exam 05/15/2022 Diabetes: Pedal Pulse Checked 05/15/2022 Diabetes: Sensory Foot Exam 05/15/2022 Diabetes: Visual Foot Exam 05/15/2022 Diabetes: Hemoglobin A1C 11/08/2022 022, 04/26/2022 Influenza Vaccine (Season Ended) 2025 Hepatitis B Vaccine Aged Out No longe r eligible based on patient's age to complete this topic Procedures Procedure Name Priority Date/Time Associated Diagnosis Comments EXT RESULT ENTRY Routine 08/08/2022 from Last 3 Months or Most Recently Relevant to Health Maintenance Results * (ABNORMAL) EXT RESULT ENTRY (08/08/2022) Sodium 138 137 - 147 Potassium 4.8 3.4 - 5.5 Chloride 102.0 99.0 - 108.0 Anion Gap 11 <=30 MMOL/L BUN 15 4 - 21 mg/dL Creatinine 1.10 0.60 - 1.30 mg/dL Albumin 4.6 3.5 - 5.0 g/dL Calcium 9.1 8.7 - 10.7 mg/dL Hemoglobin A1C 10.7(A) 4.0 - 6.0 08/08/2022 Historical Provider LAB BLOOD ORDERABLES Jennifer hernandez Result from Last 3 Months or Most Recently Relevant to Health Maintenance Insurance Medicare Medicaid [place] Care Teams Raised Printer Relationship Specialty Start Date End Date Mia Howard MD [address] [place] [id number] PCP - General Internal Medicine 05/03/22
== END 2024-12-29 10:32 | disposition home or self-care (01) ==
LOC: HO.HKA 10:11
PROVIDERS: PCP Internal Medicine; Visit Provider Internal Medicine Hypertension Specialist
DX: N18.30 Chronic kidney disease, stage 3 unspecified (principal); I10 Essential (primary) hypertension; E87.5 Hyperkalemia; R60.9 Edema, unspecified
CPT/HCPCS: 99214

== ENCOUNTER 2024-12-29 10:11 | Outpatient (REF) | payer MEDICARE, SELFPAY ==
[2024-12-29 11:25] LABS: Hematocrit 38.4 % (42.0-52.0); Hemoglobin 13.3 g/dl (14.0-18.0); Mean Corpuscular HGB Conc 34.6 g/dl (31.0-36.0); Mean Corpuscular Hemoglobin 33.7 pg (27.0-33.0); Mean Corpuscular Volume 97.2 fL (80.0-98.0); Mean Platelet Volume 10.1 fL (9.4-12.4); Platelet Count 290 X10*3/uL (160-400); Red Blood Count 3.95 X10*6/uL (4.60-5.80); Red Cell Distribution Width 11.7 % (11.0-16.0); White Blood Count 7.7 X10*3/uL (4.8-10.8)
[2024-12-29 11:34] LABS: Appearance Urine Clear; Color Urine Yellow; Glucose Urine UA Negative (Negative); Leukocyte Esterase Urine Trace (Negative); Nitrite Urine Negative (Negative); PH 6.5 (5.0-9.0); UMIC TRIGGER UA YES; Urine Blood Negative (Negative); Urine Ketones Trace mg/dL (Negative); Urine Protein 100 (2+) mg/dL (Neg-Trace)
[2024-12-29 11:55] LABS: Alanine Aminotransferase 53 U/L (0-40); Albumin Level 4.3 g/dL (3.5-5.0); Alkaline Phosphatase 49 U/L (39-117); Anion Gap 12 (12-20); Aspartate Amino Transferase 51 U/L (5-37); Bilirubin Total 0.6 mg/dL (0.0-1.0); Blood Urea Nitrogen 22 mg/dL (9-16); Calcium 9.9 mg/dL (8.4-10.2); Carbon Dioxide 29 mmol/L (22-29); Chloride 105 mmol/L (96-108); Estimated Glomerular Filt Rate 53; Glucose Random 116 mg/dL (60-115); Potassium 4.9 mmol/L (3.3-5.1); Sodium 141 mmol/L (135-145); Total Protein 7.1 g/dL (6.5-8.0)
[2024-12-29 11:56] LABS: Bacteria Urine None Seen (None Seen); Hyaline Casts Urine 0-2 /LPF (0-2); RBC Urine 0-2 /HPF (0-2); Squamous Epithelial Cell Urine 0-2 /HPF (0-2); WBC Urine 0-5 /HPF (0-5)
[2024-12-29 12:01] LABS: Creatinine Urine 163.41 mg/dL; Total Protein Urine Random 57 mg/dL (<12)
--- OUTSIDE RECORDS SUMMARY | 2024-12-29 13:04 | XMS_ITS | Clinical Summary ---
Author Organization [facility] Address [address] [place] [address] [address] [place] [phone] Phone Care Team Providers Care Glazier Helper Name Role Phone Mia Howard MD Primary Care Provider [phone] Allergies No known active allergies Medications * [...] Medicaid [place] Care Teams Glazier Helper Relationship Specialty Start Date End Date Mia Howard MD [address] [place] [id number] PCP - General Internal Medicine 05/03/22
== END 2024-12-29 10:12 | disposition home or self-care (01) ==
LOC: HO.LAB 10:11
PROVIDERS: PCP Internal Medicine; Visit Provider Internal Medicine Hypertension Specialist
DX: I12.9 Hypertensive chronic kidney disease with stage 1 through stage 4 chronic kidney disease, or unspecified chronic kidney disease (principal); N18.30 Chronic kidney disease, stage 3 unspecified; E78.5 Hyperlipidemia, unspecified; R60.9 Edema, unspecified
CPT/HCPCS: 36415; 80053; 81001; 82570; 84156; 85027; 99212